=== PATIENT | male | born 1975 ===

== ENCOUNTER 2018-07-24 15:47 | Emergency (ER) | payer SELFPAY ==
[~2018-07-24] VITALS: Ht 182.9 cm; Wt 113.4 kg
[2018-07-24 16:57] LABS: BASO % 0 % (0-3); EOS % 0 % (0-3); HEMATOCRIT 46.3 % (39.0-53.0); HEMOGLOBIN 15.6 g/dL (13.0-17.5); LYMPH # 1.4 x10^3/uL (1.0-4.8); LYMPH % 19 % (24-48); MEAN CORPUSCULAR HEMOGLOBIN 32 pg (25-35); MEAN CORPUSCULAR HGB CONC 34 g/dL (31-37); MEAN CORPUSCULAR VOLUME 94 fL (79-100); MONO # 0.8 x10^3/uL (0.0-1.1); MONO % 11 % (0-9); NEUT # 5.3 x10^3uL (1.8-7.7); NEUT % 70 % (31-73); PLATELET COUNT 177 x10^3/uL (140-400); RED BLOOD COUNT 4.95 x10^6/uL (4.30-5.70); WHITE BLOOD COUNT 7.6 x10^3/uL (4.0-11.0)
[2018-07-24 17:15] LABS: CALCIUM 8.5 mg/dL (8.5-10.1); CREATININE 1.4 mg/dL (0.7-1.3); GFR 55.1; POTASSIUM 3.8 mmol/L (3.5-5.1)
[2018-07-24 17:17] LABS: ALBUMIN 3.5 g/dL (3.4-5.0); ALBUMIN/GLOBULIN RATIO 0.9 (1.0-1.7); TOTAL BILIRUBIN 0.2 mg/dL (0.2-1.0); TOTAL PROTEIN 7.6 g/dL (6.4-8.2)
[2018-07-24] MEDS ORDERED: MORPHINE SULFATE 4 MG/ML VIAL. IV ONE (17:30)
[2018-07-24] MEDS ORDERED: ONDANSETRON PF 4 MG/2 ML VIAL. IV ONE (17:30)
[2018-07-24] MEDS ORDERED: IV NORMAL SALINE 1000ML BAG 1,000 ML IV ONE (17:30)
[2018-07-24 18:03] LABS: BILIRUBIN,URINE NEGATIVE (NEG); CLARITY,URINE CLEAR; COLOR,URINE YELLOW; NITRITE,URINE NEGATIVE (NEG); PROTEIN,URINE NEGATIVE (NEG-TRACE); UROBILINOGEN,URINE 0.2 mg/dL (0.2 mg/dL)
[2018-07-24 18:10] LABS: BACTERIA,URINE 0 /HPF (0-FEW); RBC,URINE RARE /HPF (0-2); SQUAMOUS EPITHELIAL CELL,UR OCC /LPF; WBC,URINE RARE /HPF (0-4)
--- NOTE | 2018-07-24 18:28 | RAD ---
Abdominal and Pelvis CT, Without Contrast: History: 3 days of lower abdominal pain and diarrhea. Comparison: None. Procedure: Axial images are obtained of the abdomen and pelvis, without IV or oral contrast. CT Abdomen without Contrast: Findings: Evaluation of solid organs is limited without contrast. Evaluation of stomach and bowel is limited without oral contrast. There is mild wall thickening of the transverse colon without surrounding inflammation. The appendix is normal. Liver: Normal. Spleen: Normal. Pancreas: Normal. Adrenal Glands: Normal. Kidneys: Normal. There is no free air or free fluid. There is no lymphadenopathy. Impression: Please see CT Pelvis without Contrast. End Impression. CT Pelvis without Contrast: Findings: The urinary bladder is collapsed not well evaluated. There is no free fluid. There is no lymphadenopathy. There is no pericolonic inflammation identified. Impression: Mild wall thickening of the transverse colon without surrounding inflammation. This is consistent with colitis and could be inflammatory such as ulcerative colitis or could be infectious such as pseudomembranous colitis. There is no evidence of diverticulitis or ischemic colitis. End impression PQRS Compliance Statement: One or more of the following individualized dose reduction techniques were utilized for this examination: 1. Automated exposure control 2. Adjustment of the mA and/or kV according to patient size 3. Use of iterative reconstruction technique Electronically signed by: Emiliano Rubin III, MD (07/24/2018 6:25 PM) [id number]
[2018-07-24] MEDS ORDERED: METR500T PO (19:10)
[2018-07-24] MEDS ORDERED: CIPR500T94 PO (19:10)
--- NOTE | 2018-07-24 19:10 | PHYS DOC ---
Past Medical History Past Medical History: Cancer Past Surgical History: No Surgical History Alcohol Use: Heavy Additional Information: PATIENT REPORTS HE DRINKS 1-2 BEERS PER NIGHT Drug Use: None Social History Narrative: 2 YEARS SOBER FROM METHAMPHETAMINE Adult General Chief Complaint Chief Complaint: DIARRHEA HPI HPI Patient is a 43 year old [f__sex] who presents with [] Review of Systems Review of Systems Constitutional: Denies fever or chills [] Eyes: Denies change in visual acuity, redness, or eye pain [] HENT: Denies nasal congestion or sore throat [] Respiratory: Denies cough or shortness of breath [] Cardiovascular: No additional information not addressed in HPI [] GI: Denies abdominal pain, nausea, vomiting, bloody stools or diarrhea [] : Denies dysuria or hematuria [] Musculoskeletal: Denies back pain or joint pain [] Integument: Denies rash or skin lesions [] Neurologic: Denies headache, focal weakness or sensory changes [] Endocrine: Denies polyuria or polydipsia [] All other systems were reviewed and found to be within normal limits, except as documented in this note. Current Medications Current Medications Current Medications Medications (Trade) Dose Ordered Sig/Gene Start Time Stop Time Status Last Admin Dose Admin Morphine Sulfate (Morphine Sulfate) 4 mg 1X ONCE 07/24/18 17:30 07/24/18 17:31 DC 07/24/18 17:12 4 MG Ondansetron HCl (Zofran) 4 mg 1X ONCE 07/24/18 17:30 07/24/18 17:31 DC 07/24/18 17:13 4 MG Sodium Chloride 1,000 ml @ 1,000 mls/hr 1X ONCE 07/24/18 17:30 07/24/18 18:29 DC 07/24/18 17:17 1,000 MLS/HR Allergies Allergies Allergies Coded Allergies Type Severity Reaction Last Updated Verified No Known Drug Allergies 07/24/18 No Physical Exam Physical Exam Constitutional: Well developed, well nourished, no acute distress, non-toxic appearance. [] HENT: Normocephalic, atraumatic, bilateral external ears normal, oropharynx moist, no oral exudates, nose normal. [] Eyes: PERRLA, EOMI, conjunctiva normal, no discharge. [] Neck: Normal range of motion, no tenderness, supple, no stridor. [] Cardiovascular:Heart rate regular rhythm, no murmur [] Lungs & Thorax: Bilateral breath sounds clear to auscultation [] Abdomen: Bowel sounds normal, soft, no tenderness, no masses, no pulsatile masses. [] Skin: Warm, dry, no erythema, no rash. [] Back: No tenderness, no CVA tenderness. [] Extremities: No tenderness, no cyanosis, no clubbing, ROM intact, no edema. [] Neurologic: Alert and oriented X 3, normal motor function, normal sensory function, no focal deficits noted. [] Psychologic: Affect normal, judgement normal, mood normal. [] Current Patient Data Vital Signs Vital Signs Date Time Temp Pulse Resp B/P (MAP) Pulse Ox O2 Delivery O2 Flow Rate FiO2 07/24/18 17:12 16 07/24/18 16:40 98.2 78 139/75 (96) 97 Room Air 98.2 Lab Values Laboratory Tests Test 07/24/18 16:45 07/24/18 17:15 White Blood Count 7.6 x10^3/uL (4.0-11.0) Red Blood Count 4.95 x10^6/uL (4.30-5.70) Hemoglobin 15.6 g/dL (13.0-17.5) Hematocrit 46.3 % (39.0-53.0) Mean Corpuscular Volume 94 fL (79-100) Mean Corpuscular Hemoglobin 32 pg (25-35) Mean Corpuscular Hemoglobin Concent 34 g/dL (31-37) Red Cell Distribution Width 14.0 % (11.5-14.5) Platelet Count 177 x10^3/uL (140-400) Neutrophils (%) (Auto) 70 % (31-73) Lymphocytes (%) (Auto) 19 % (24-48) L Monocytes (%) (Auto) 11 % (0-9) H Eosinophils (%) (Auto) 0 % (0-3) Basophils (%) (Auto) 0 % (0-3) Neutrophils # (Auto) 5.3 x10^3uL (1.8-7.7) Lymphocytes # (Auto) 1.4 x10^3/uL (1.0-4.8) Monocytes # (Auto) 0.8 x10^3/uL (0.0-1.1) Eosinophils # (Auto) 0.0 x10^3/uL (0.0-0.7) Basophils # (Auto) 0.0 x10^3/uL (0.0-0.2) Sodium Level 138 mmol/L (136-145) Potassium Level 3.8 mmol/L (3.5-5.1) Chloride Level 103 mmol/L (98-107) Carbon Dioxide Level 28 mmol/L (21-32) Anion Gap 7 (6-14) Blood Urea Nitrogen 14 mg/dL (8-26) Creatinine 1.4 mg/dL (0.7-1.3) H Estimated GFR (Cockcroft-Gault) 55.1 BUN/Creatinine Ratio 10 (6-20) Glucose Level 111 mg/dL (70-99) H Calcium Level 8.5 mg/dL (8.5-10.1) Total Bilirubin 0.2 mg/dL (0.2-1.0) Aspartate Amino Transferase (AST) 17 U/L (15-37) Alanine Aminotransferase (ALT) 27 U/L (16-63) Alkaline Phosphatase 78 U/L (46-116) Total Protein 7.6 g/dL (6.4-8.2) Albumin 3.5 g/dL (3.4-5.0) Albumin/Globulin Ratio 0.9 (1.0-1.7) L Lipase 126 U/L (73-393) Urine Collection Type Unknown Urine Color Yellow Urine Clarity Clear Urine pH 6.0 Urine Specific [place] 1.025 Urine Protein Negative mg/dL (NEG-TRACE) Urine Glucose (UA) Negative mg/dL (NEG) Urine Ketones (Stick) Negative mg/dL (NEG) Urine Blood Negative (NEG) Urine Nitrite Negative (NEG) Urine Bilirubin Negative (NEG) Urine Urobilinogen Dipstick 0.2 mg/dL (0.2 mg/dL) Urine Leukocyte Esterase Trace (NEG) Urine RBC Rare /HPF (0-2) Urine WBC Rare /HPF (0-4) Urine Squamous Epithelial Cells Occ /LPF Urine Bacteria 0 /HPF (0-FEW) Urine Mucus Marked /LPF Laboratory Tests 07/24/18 16:45 Laboratory Tests 07/24/18 16:45 EKG EKG [] Radiology/Procedures Radiology/Procedures [] Course & Med Decision Making Course & Med Decision Making Pertinent Labs and Imaging studies reviewed. (See chart for details) [] Trace Disclaimer Trace Disclaimer This electronic medical record was generated, in whole or in part, using a voice recognition dictation system. Departure Departure Impression: Primary Impression: Colitis Disposition: 01 HOME, SELF-CARE Condition: STABLE Referrals: UNKNOWN PCP NAME (PCP) Patient Instructions: Colitis Additional Instructions: Review of prescriptions and use them as directed. Off work for the next 1-2 days. Clear liquid diet until stools start forming, then he may advance his diet to bland foods like bananas, rice, applesauce, and toast. Follow-up with your primary care doctor in the next 1-2 days. Return to the emergency room if your symptoms worsen. 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
[2018-07-24 19:31] VITALS: BP 140/86
== END 2018-07-24 19:37 | disposition home or self-care (01) ==
LOC: ER 15:47
DX: K52.9 Noninfective gastroenteritis and colitis, unspecified (principal); F10.10 Alcohol abuse, uncomplicated; Y90.9 Presence of alcohol in blood, level not specified
CPT/HCPCS: 36415; 74176; 80053; 81001; 83690; 85025; 96361; 96374; 96375; 99285; J2270; J2405; J7030

== ENCOUNTER 2018-08-23 20:28 | Emergency (ER) | payer SELFPAY ==
[~2018-08-23] VITALS: Ht 182.9 cm; Wt 113.4 kg
[~2018-08-23 20:28] MED LIST: CIPR500T94 PO; METR500T PO
[2018-08-23 21:01] LABS: CREATININE ISTAT 1.3 mg/dL (0.5-1.4); HEMOGLOBIN ISTAT 15.6 g/dL (14-18); ION CA ISTAT 1.11 mmol/L (1.13-1.32); POTASSIUM ISTAT 4.1 mmol/L (3.5-5.0)
--- NOTE | 2018-08-23 21:04 | PHYS DOC ---
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 He uses methamphetamines and last used 2 weeks ago. While at work on his construction job, he found a fentanyl patch on the ground which he took home and later stuck in his mouth and sucked on it at 5:30pm. He was trying to get "high". He spit it out after a few minutes , because it tasted bad. At 6:30pm after dinner, he started to feel "weird" with 5/10 chest pressure and came to the ED, BIB . He notes no aggravating or alleviating factors. Pain is non radiating. Review of Systems Review of Systems Constitutional: Denies fever or chills Eyes: Denies change in visual acuity, redness, or eye pain HENT: Denies nasal congestion or sore throat Respiratory: Denies cough or shortness of breath Cardiovascular: with chest pain, no palpitations GI: Denies abdominal pain, nausea, vomiting, bloody stools or diarrhea : Denies dysuria or hematuria Musculoskeletal: Denies back pain or joint pain Integument: Denies rash or skin lesions Neurologic: Denies headache, focal weakness or sensory changes Endocrine: Denies polyuria or polydipsia All other systems were reviewed and found to be within normal limits, except as documented in this note. Current Medications Current Medications Current Medications Medications (Trade) Dose Ordered Sig/[facility] Start Time Stop Time Status Last Admin Dose Admin Aspirin (Nabil Aspirin) 325 mg 1X ONCE 08/24/18 00:45 08/24/18 00:46 DC Multi-Ingredient Mouthwash/Gargle (Gi Cocktail) 20 ml 1X ONCE 08/23/18 21:45 08/23/18 21:46 DC 08/23/18 21:51 20 ML Allergies Allergies Allergies Coded Allergies Type Severity Reaction Last Updated Verified No Known Drug Allergies 07/24/18 No Physical Exam Physical Exam Constitutional: Well developed, well nourished, no acute distress, non-toxic appearance. HENT: Normocephalic, atraumatic, bilateral external ears normal, oropharynx moist, no oral exudates, nose normal. Eyes: PERRLA, EOMI, conjunctiva normal, no discharge. Neck: Normal range of motion, no tenderness, supple, no stridor. Cardiovascular:Heart rate regular rhythm, no murmur Lungs & Thorax: Bilateral breath sounds clear to auscultation Abdomen: Bowel sounds normal, soft, no tenderness, no masses, no pulsatile masses. Skin: Warm, dry, no erythema, no rash. Back: No tenderness, no CVA tenderness. Extremities: No tenderness, no cyanosis, no clubbing, ROM intact, no edema. Neurologic: Alert and oriented X 3, normal motor function, normal sensory function, no focal deficits noted. Psychologic: Affect normal, judgement normal, mood normal. Current Patient Data Vital Signs Vital Signs Date Time Temp Pulse Resp B/P (MAP) Pulse Ox O2 Delivery O2 Flow Rate FiO2 08/24/18 01:17 87 20 140/69 (92) 97 Room Air 08/23/18 20:29 98.1 98.1 Lab Values Laboratory Tests Test 08/23/18 20:37 08/23/18 20:52 08/23/18 20:57 08/23/18 21:42 White Blood Count 14.4 x10^3/uL (4.0-11.0) H Red Blood Count 4.81 x10^6/uL (4.30-5.70) Hemoglobin 15.5 g/dL (13.0-17.5) Hematocrit 44.5 % (39.0-53.0) Mean Corpuscular Volume 93 fL (79-100) Mean Corpuscular Hemoglobin 32 pg (25-35) Mean Corpuscular Hemoglobin Concent 35 g/dL (31-37) Red Cell Distribution Width 14.1 % (11.5-14.5) Platelet Count 250 x10^3/uL (140-400) Neutrophils (%) (Auto) 78 % (31-73) H Lymphocytes (%) (Auto) 16 % (24-48) L Monocytes (%) (Auto) 6 % (0-9) Eosinophils (%) (Auto) 0 % (0-3) Basophils (%) (Auto) 0 % (0-3) Neutrophils # (Auto) 11.1 x10^3uL (1.8-7.7) H Lymphocytes # (Auto) 2.3 x10^3/uL (1.0-4.8) Monocytes # (Auto) 0.8 x10^3/uL (0.0-1.1) Eosinophils # (Auto) 0.0 x10^3/uL (0.0-0.7) Basophils # (Auto) 0.0 x10^3/uL (0.0-0.2) Sodium Level 138 mmol/L (136-145) Potassium Level 4.0 mmol/L (3.5-5.1) Chloride Level 99 mmol/L (98-107) Carbon Dioxide Level 30 mmol/L (21-32) Anion Gap 9 (6-14) 18 mmol/L (6-14) H Blood Urea Nitrogen 16 mg/dL (8-26) Creatinine 1.3 mg/dL (0.7-1.3) Estimated GFR (Cockcroft-Gault) 60.0 BUN/Creatinine Ratio 12 (6-20) Glucose Level 125 mg/dL (70-99) H 129 mg/dL (70-99) H Calcium Level 9.4 mg/dL (8.5-10.1) Total Bilirubin 0.2 mg/dL (0.2-1.0) Aspartate Amino Transferase (AST) 30 U/L (15-37) Alanine Aminotransferase (ALT) 32 U/L (16-63) Alkaline Phosphatase 68 U/L (46-116) Troponin I Quantitative < 0.017 ng/mL (0.000-0.055) Total Protein 8.0 g/dL (6.4-8.2) Albumin 4.1 g/dL (3.4-5.0) Albumin/Globulin Ratio 1.1 (1.0-1.7) Lipase 129 U/L (73-393) Salicylates Level 4.4 mg/dL (2.8-20.0) Salicylate Last Dose Date Unk Salicylate Last Dose Time Unk Acetaminophen Level < 2 mcg/ml (10-30) L Acetaminophen Last Dose Date Unk Acetaminophen Last Dose Time Unk Ethyl Alcohol Level 79 mg/dL (0-10) H POC Troponin I 0.00 ng/ml (<0.08) POC Hemoglobin 15.6 g/dL (14-18) POC Hematocrit 46 % (37-52) POC Sodium 139 mmol/L (135-145) POC Potassium 4.1 mmol/L (3.5-5.0) POC Chloride 99 mmol/L (98-110) POC Total CO2 27 mmol/L (23-32) POC Blood Urea Nitrogen 17 mg/dL (8-26) POC Creatinine 1.3 mg/dL (0.5-1.4) POC Ionized Calcium (Tabitha) 1.11 mmol/L (1.13-1.32) L Urine Collection Type Unknown Urine Color Yellow Urine Clarity Clear Urine pH 5.0 Urine Specific [place] 1.025 Urine Protein Negative mg/dL (NEG-TRACE) Urine Glucose (UA) Negative mg/dL (NEG) Urine Ketones (Stick) Negative mg/dL (NEG) Urine Blood Negative (NEG) Urine Nitrite Negative (NEG) Urine Bilirubin Negative (NEG) Urine Urobilinogen Dipstick 0.2 mg/dL (0.2 mg/dL) Urine Leukocyte Esterase Negative (NEG) Urine RBC 1-2 /HPF (0-2) Urine WBC 1-4 /HPF (0-4) Urine Squamous Epithelial Cells Few /LPF Urine Bacteria Few /HPF (0-FEW) Urine Hyaline Casts Few /HPF Urine Mucus Mod /LPF Urine Opiates Screen Neg (NEG) Urine Methadone Screen Neg (NEG) Urine Barbiturates Neg (NEG) Urine Phencyclidine Screen Neg (NEG) Urine Amphetamine/Methamphetamine Pos (NEG) Urine Benzodiazepines Screen Neg (NEG) Urine Cocaine Screen Neg (NEG) Urine Cannabinoids Screen Pos (NEG) Urine Ethyl Alcohol Pos (NEG) Test 08/23/18 22:58 Troponin I Quantitative < 0.017 ng/mL (0.000-0.055) Laboratory Tests 08/23/18 20:37 Laboratory Tests 08/23/18 20:37 08/23/18 20:57 EKG EKG ECG 20:40 NSR @ [address] elevation V1-V2 with poor R wave progression 20:58 NSR @ [address] elevation V1-V2 with poor R wave progression 23:37 NSR @ [address] elevation V1-V2 with poor R wave progression Radiology/Procedures Radiology/Procedures [facility] [address] [place], [place] [id number] IMAGING REPORT Signed PATIENT: ELTON BENJAMIN ACCOUNT: [id number] : 1975 LOCATION: ER AGE: 43 SEX: M EXAM STATUS: REG ER ORD. PHYSICIAN: AMIE GUIDRY MD REASON: confusion PROCEDURE: CT HEAD WO CONTRAST Exam performed: CT scan of the head without contrast. Date of Service: 08/23/2018. Comparison: None available. Clinical History: Confusion today. Technique: Helical acquisitions are obtained from the foramen magnum to the vertex without intravenous administration of contrast. Findings: The ventricles are midline without evidence of dilatation. Normal haywood-white differentiation is maintained. There is no extra axial fluid collection, intraparenchymal hemorrhage or mass lesion. The visualized portions of the orbits, paranasal sinuses and the mastoid air cells appear clear. The calvarium is intact. Impression: 1. No acute intracranial process detected. RS Compliance Statement: One or more of the following individualized dose reduction techniques were utilized for this examination: 1. Automated exposure control 2. Adjustment of the mA and/or kV according to patient size 3. Use of iterative reconstruction technique End impression Single AP upright portable view chest findings: Cardiomediastinal silhouette is within limits of normal. No acute infiltrates, effusion or pneumothorax is detected. The bony structures are normal. Impression: No acute cardiopulmonary process is detected. Electronically signed by: Corine Clancy MD (08/23/2018 10:12 PM) [facility] DICTATED and SIGNED BY: CORINE CLANCY MD DATE: 08/23/18 2210 [facility] [address] [place] [address] IMAGING REPORT Signed PATIENT: ELTON BENJAMIN ACCOUNT: [id number] : 1975 LOCATION: ER AGE: 43 SEX: M EXAM STATUS: REG ER ORD. PHYSICIAN: AMIE GUIDRY MD REASON: chest pain PROCEDURE: CHEST AP ONLY Exam performed: CT scan of the head without contrast. Date of Service: 08/23/2018. Comparison: None available. Clinical History: Confusion today. Technique: Helical acquisitions are obtained from the foramen magnum to the vertex without intravenous administration of contrast. Findings: The ventricles are midline without evidence of dilatation. Normal haywood-white differentiation is maintained. There is no extra axial fluid collection, intraparenchymal hemorrhage or mass lesion. The visualized portions of the orbits, paranasal sinuses and the mastoid air cells appear clear. The calvarium is intact. Impression: 1. No acute intracranial process detected. PQRS Compliance Statement: One or more of the following individualized dose reduction techniques were utilized for this examination: 1. Automated exposure control 2. Adjustment of the mA and/or kV according to patient size 3. Use of iterative reconstruction technique End impression Single AP upright portable view chest findings: Cardiomediastinal silhouette is within limits of normal. No acute infiltrates, effusion or pneumothorax is detected. The bony structures are normal. Impression: No acute cardiopulmonary process is detected. Electronically signed by: Corine Clancy MD (08/23/2018 10:12 PM) [facility] DICTATED and SIGNED BY: CORINE CLANCY MD DATE: 08/23/182209 Course & Med Decision Making Course & Med Decision Making Emergency Department Course Patient presents with chest pain and altered sensorium after drug ingestion. DDx- ACS, CHF, PE, GERD, PUD Patient was stable in the ED. Initial ECG was abnormal and was repeated with negative troponin, noting no evidence of ACS. Case and ECGs were discussed with Dr. Jonas who noted no STEMI and recommended admission for further evaluation. Labs remarkable for leukocytosis. UDS positive for methamphetamines and cannabis. Patient's sensorium cleared with observation and IV NS hydration. He returned to baseline mental status, confirmed by his at the bedside. Noting positive UDS for cannabis and methamphetamines he was likely intoxicated. Patient was offered admission but the patient refused admission. Patient agreed to a third set of cardiac enzymes which was unremarkable. Patient was again offered admission to the hospital and he refused. I advised he stop using drugs and follow-up with his PCP and cardiology referral. Patient was given aspirin. 21:18 Serial ECGs and troponin reviewed by Dr. Jonas and there is no STEMI. Recommends Lovenox and admit to trend cardiac enzymes. 23:00 She was offered admission and he declined. I spoke with him about the risk of having a heart attack he understood this risk and wanted to leave the hospital. I convinced him to have a repeat EKG and cardiac enzyme to address a questionably Hospital. 00:24 Patient had repeat ECG and cardiac enzymes which showed no evidence of acute coronary syndrome. Patient was insistent on leaving the hospital and refused to stay for cardiac evaluation. He understands that he may have underlying heart disease which could lead to . He voiced understanding of this risk and left AGAINST MEDICAL ADVICE. Trace Disclaimer Trace Disclaimer This electronic medical record was generated, in whole or in part, using a voice recognition dictation system. Departure Departure Impression: Primary Impression: Chest pain Additional Impressions: Methamphetamine abuse Cannabis abuse Alcohol use Encephalopathy Left against medical advice Care refused by patient Disposition: 07 AGAINST MEDICAL ADVICE Condition: STABLE Referrals: UNKNOWN PCP NAME (PCP) LILIA LIMON MD Follow-up tomorrow for further evaluation RANULFO JONAS MD Follow-up tomorrow for further evalaution and outpatient cardiac evaluation Patient Instructions: Alcohol and Drug Addiction, Finding Treatment, Chest Pain (Nonspecific), Confusion, Marijuana Abuse and Chemical Dependency, Methamphetamine Abuse, Complications Additional Instructions: Stop using drugs! Follow-up tomorrow for further evaluation of your heart If you develop recurrent chest pain, shortness of breath, weakness, numbness, confusion, return to the Emergency Department immediately Scripts Aspirin (ASPIRIN) 81 Mg Tab.chew 1 TAB PO DAILY, #20 TAB 0 Refills Prov: AMIE GUIDRY MD 08/24/18 Problem Qualifiers Primary Impression: Chest pain Chest pain type: precordial pain Qualified Codes: R07.2 - Precordial pain AMIE GUIDRY MD Aug 23, 2018 21:04
[2018-08-23 21:08] LABS: BASO % 0 % (0-3); EOS % 0 % (0-3); HEMATOCRIT 44.5 % (39.0-53.0); HEMOGLOBIN 15.5 g/dL (13.0-17.5); LYMPH # 2.3 x10^3/uL (1.0-4.8); LYMPH % 16 % (24-48); MEAN CORPUSCULAR HEMOGLOBIN 32 pg (25-35); MEAN CORPUSCULAR HGB CONC 35 g/dL (31-37); MEAN CORPUSCULAR VOLUME 93 fL (79-100); MONO # 0.8 x10^3/uL (0.0-1.1); MONO % 6 % (0-9); NEUT # 11.1 x10^3uL (1.8-7.7); NEUT % 78 % (31-73); PLATELET COUNT 250 x10^3/uL (140-400); RED BLOOD COUNT 4.81 x10^6/uL (4.30-5.70); RED CELL DISTRIBUTION WIDTH 14.1 % (11.5-14.5); WHITE BLOOD COUNT 14.4 x10^3/uL (4.0-11.0)
[2018-08-23 21:20] LABS: CALCIUM 9.4 mg/dL (8.5-10.1); CREATININE 1.3 mg/dL (0.7-1.3)
[2018-08-23 21:25] LABS: ACETAMIN < 2 mcg/ml (10-30); ETHANOL 79 mg/dL (0-10); SALIC 4.4 mg/dL (2.8-20.0)
[2018-08-23 21:26] LABS: ALBUMIN 4.1 g/dL (3.4-5.0); ALBUMIN/GLOBULIN RATIO 1.1 (1.0-1.7); TOTAL BILIRUBIN 0.2 mg/dL (0.2-1.0)
[2018-08-23 21:51] LABS: BILIRUBIN,URINE NEGATIVE (NEG); CLARITY,URINE CLEAR; COLOR,URINE YELLOW; NITRITE,URINE NEGATIVE (NEG); PROTEIN,URINE NEGATIVE (NEG-TRACE); UROBILINOGEN,URINE 0.2 mg/dL (0.2 mg/dL)
[2018-08-23] MEDS: LIDO:MAALOX 1:1 20 ML SINGLE DOSE. SWSW ONE (21:51)
[2018-08-23 22:00] LABS: BACTERIA,URINE FEW /HPF (0-FEW); BARBITURATES NEG (NEG); BENZODIAZEPINES NEG (NEG); CANNABINOIDS POS (NEG); COCAINE NEG (NEG); HYALINE CASTS, URINE FEW /HPF; METHADONE NEG (NEG); OPIATES NEG (NEG); PHENCYCLIDINE NEG (NEG); SQUAMOUS EPITHELIAL CELL,UR FEW /LPF
[2018-08-23 22:03] LABS: AMPHETAMINE/METHAMPHETAMINE POS (NEG)
--- NOTE | 2018-08-23 22:15 | RAD ---
Exam performed: CT scan of the head without contrast. Date of Service: 08/23/2018. Comparison: None available. Clinical History: Confusion today. Technique: Helical acquisitions are obtained from the foramen magnum to the vertex without intravenous administration of contrast. Findings: The ventricles are midline without evidence of dilatation. Normal haywood-white differentiation is maintained. There is no extra axial fluid collection, intraparenchymal hemorrhage or mass lesion. The visualized portions of the orbits, paranasal sinuses and the mastoid air cells appear clear. The calvarium is intact. Impression: 1. No acute intracranial process detected. RS Compliance Statement: One or more of the following individualized dose reduction techniques were utilized for this examination: 1. Automated exposure control 2. Adjustment of the mA and/or kV according to patient size 3. Use of iterative reconstruction technique End impression Single AP upright portable view chest findings: Cardiomediastinal silhouette is within limits of normal. No acute infiltrates, effusion or pneumothorax is detected. The bony structures are normal. Impression: No acute cardiopulmonary process is detected. Electronically signed by: Corine Clancy MD (08/23/2018 10:12 PM) [facility]
[2018-08-24] MEDS ORDERED: ASPI-630 PO (00:32)
[2018-08-24] MEDS ORDERED: ASPIRIN 325 MG TABLET PO ONE (00:45)
[2018-08-24 01:17] VITALS: BP 140/69
--- NOTE | 2018-08-24 06:16 | EKG ---
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
--- NOTE | 2018-08-24 06:20 | EKG ---
[facility] [address] [place] [address] Test Date: 2018-08-23 Test Time: 20:35:09 Pat Name: ELTON BENJAMIN Department: Room: Gender: M [employer]: : 1975 Requested By: AMIE GUIDRY Order Number: [id number] Reading MD: Reginald Lowe Measurements Intervals [place] Rate: 97 P: 45 VT: 148 QRS: -50 QRSD: 112 T: 43 QT: 350 QTc: 448 Interpretive Statements SINUS RHYTHM ABNORMAL LEFT AXIS DEVIATION LEFT ANTERIOR FASCICULAR BLOCK INCOMPLETE RIGHT BUNDLE BRANCH BLOCK NON SPECIFIC ST-T ABNORMALITY (ELEVATION) ABNORMAL ECG No previous ECG available for comparison Electronically Signed On 08-24-2018 15:27:22 CDT by Reginald Lowe
--- NOTE | 2018-08-24 06:20 | EKG ---
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
== END 2018-08-24 01:18 | disposition home or self-care (01) ==
LOC: ER 20:28
DX: R07.2 Precordial pain (principal); G93.40 Encephalopathy, unspecified; F15.10 Other stimulant abuse, uncomplicated; F14.10 Cocaine abuse, uncomplicated; F10.20 Alcohol dependence, uncomplicated; Y90.3 Blood alcohol level of 60-79 mg/100 ml
CPT/HCPCS: 36415; 70450; 71045; 80047; 80053; 80307; 80329; 81001; 83690; 84484; 85025; 93005; 99285; G0480; G6039; G0479